=== PATIENT | female | born 1955 | race Caucasian/White ===

== ENCOUNTER 2022-09-07 11:57 | Outpatient (CLI) | payer MEDICARE | END 2022-09-07 11:58 | disposition home or self-care (01) | LOC: CSHMRI 11:57 | PROVIDERS: ATTEND Family Medicine | DX: M54.50 Low back pain, unspecified (principal); M47.816 Spondylosis without myelopathy or radiculopathy, lumbar region | CPT/HCPCS: 72148 ==